=== PATIENT | male | born 1975 | race Caucasian/White ===

== ENCOUNTER 2017-08-07 14:16 | Emergency (ER) | payer OTHER ==
[~2017-08-07] VITALS: Ht 172.7 cm; Wt 86.2 kg
[2017-08-07 14:25] VITALS: BP_SYST 132
--- NOTE | 2017-08-07 17:00 | NUR ---
Patient to ER bed 4 to gown for evaluation. Side rails up. Report given to Baldo ONEAL.
--- NOTE | 2017-08-07 17:05 | NUR ---
Pt presents to ED c/o L heel and foot pain s/p fall from ladder. Pt denies med hx. Affected area elevated for comfort, ice pack applied.Pt unable to bear weight.
--- NOTE | 2017-08-07 17:47 | NUR ---
ER Dr. Gonzalez at bedside examining patient.
--- NOTE | 2017-08-07 17:57 | NUR ---
Splint applied to L lower leg. Pt tolerated well. +CMS.
[2017-08-07 18:35] VITALS: BP_SYST 132
--- NOTE | 2017-08-07 18:35 | NUR ---
Patient given written and verbal discharge instructions and verbalizes understanding. ER MD discussed with patient the results and treatment provided. Patient in stable condition. ID arm band removed. Rx of motrin given. Patient educated on pain management and to follow up with PMD. Pain Scale 0. Opportunity for questions provided and answered.
== END 2017-08-07 18:35 | disposition home or self-care (01) ==
LOC: SED 14:16
DX: S99.922A Unspecified injury of left foot, initial encounter (principal); W11.XXXA Fall on and from ladder, initial encounter; Y93.89 Activity, other specified; Y92.89 Other specified places as the place of occurrence of the external cause; Y99.8 Other external cause status
CPT/HCPCS: 99284

== ENCOUNTER 2023-04-17 03:47 | Emergency (ER) | payer OTHER ==
[~2023-04-17] VITALS: Ht 175.3 cm; Wt 90.7 kg
[2023-04-17 03:59] VITALS: BP_SYST 133; PULSE 73; RESP 16; TEMP 97.9; O2SAT 99
[2023-04-17] MEDS ORDERED: HYDROcodone/ACETAMIN 5-325 MG TAB (NORCO/ VICODIN) PO ONE (05:30)
[2023-04-17] MEDS ORDERED: KETOROLAC TROMETHAMINE 15 MG VIAL IM ONE (05:30)
[2023-04-17] MEDS ORDERED: methocarbamoL 500 MG TABLET PO ONE (05:30)
[2023-04-17] MEDS ORDERED: METH-634 PO (05:44)
[2023-04-17] MEDS ORDERED: IBUP-1969 PO (05:44)
[2023-04-17 06:14] VITALS: BP_SYST 130; PULSE 70; RESP 17; TEMP 97.9; O2SAT 98
== END 2023-04-17 06:10 | disposition home or self-care (01) ==
LOC: SED 03:47
DX: M25.511 Pain in right shoulder (principal); Z79.899 Other long term (current) drug therapy
CPT/HCPCS: 99283; 73030; 96372; J1885